=== PATIENT | female | born 1990 | race African-American/Black ===

== ENCOUNTER 2017-05-17 13:19 | Emergency (ER) | payer BC ==
[2017-05-17] MEDS ORDERED: Lidocaine 1% w/Epinephrine 1:200K 30 ML VIAL ONE (14:08)
[2017-05-17] MEDS ORDERED: Lidocaine 1% (PF) 30 ML VIAL ONE (14:09)
== END 2017-05-17 15:26 | disposition home or self-care (01) ==
LOC: ERS 13:19
DX: L02.211 Cutaneous abscess of abdominal wall (principal)
CPT/HCPCS: 10060; J2001

== ENCOUNTER 2017-06-09 08:58 | Emergency (ER) | payer BC ==
[2017-06-09 09:19] LABS: #Eosinphils 0.1 thou/uL (0.0-0.7); #Lymphocytes 1.4 thou/uL (1.20-3.40); #Monocytes 0.2 thou/uL (0.11-0.59); #Neutrophils 4.2 thou/uL (1.40-6.50); %Basophils 0.4 % (0.0-1.0); %Eosinophils 0.9 % (0.0-10.0); %Lymphocytes 23.4 % (21.0-51.0); %Monocytes 2.8 % (0.0-10.0); Hematocrit 40.4 % (36.0-47.0); Mean Platelet Volume 7.4 fL (7.4-10.4); Red Blood Cell (RBC) Count 4.67 mill/uL (4.20-5.40); White Blood Cell (WBC) Count 5.8 thou/uL (4.8-10.8)
[2017-06-09 09:40] LABS: ALT (SGPT) 13 U/L (8-55); AST (SGOT) 16 U/L (5-34); Alkaline Phosphatase 101 U/L (40-150); Anion Gap 12 mmol/L (10-20); BUN (Urea Nitrogen) 9 mg/dL (7.0-18.7); Bilirubin, Total 0.4 mg/dL (0.2-1.2); Calc. Creatinine Clearance 0 mL/min (70-130); Carbon Dioxide 26 mmol/L (22-29); Chloride 104 mmol/L (98-107); Estimated GFR-MDRD Greater than 90; Globulin 4.4 g/dL (2.4-3.5); Lipase 20 U/L (8-78); Protein, Total 8.4 g/dL (6.0-8.3)
[2017-06-09] MEDS ORDERED: Ondansetron HCl/PF 4 MG/2 ML Vial ONE (09:42)
[2017-06-09 11:02] LABS: Bilirubin Negative (Negative); Blood, Urine Negative (Negative); Glucose, Urine (Dipstick) Negative (Negative); Ketone, Urine Negative (Negative); Nitrite Negative (Negative); Protein, Urine (Dipstick) Negative (Neg-Trace)
[2017-06-09 11:05] LABS: Bacteria/HPF Rare-Few HPF (None Seen); Hyaline Casts/LPF 0-3 HYALINE CAST LPF (0-3 Hyaline); RBC/HPF 0-3 HPF (0-3)
== END 2017-06-09 11:30 | disposition home or self-care (01) ==
LOC: ERS 08:58
DX: R10.9 Unspecified abdominal pain (principal); R19.7 Diarrhea, unspecified
CPT/HCPCS: 36415; 80053; 81003; 81015; 81025; 83690; 85025; 96361; 96374; J2405